=== PATIENT | female | born 1975 | race Caucasian/White ===

== ENCOUNTER 2018-10-07 16:50 | Emergency (ER) | payer SELFPAY ==
[~2018-10-07] VITALS: Ht 157.5 cm; Wt 74.8 kg
[2018-10-07 16:52] VITALS: BP 163/98
[2018-10-07] MEDS ORDERED: ONDANSETRON 4 MG ODT PO ONE (17:10)
--- NOTE | 2018-10-07 17:31 | NUR ---
BIB FRIEND W C/O WEAKNESS AFTER DRINKING A "DETOX" DRINK. PT REPORTS USING METHAMPHETAMINE SUNDAY, AND DRINKING THAT DRINK SO SHE WOULD BE ABLE TO DRUG TEST FOR WORK. NO FACIAL DROOP NOTED, EQUAL TOUCH UP PAINTER HAND. PT ANSWERING QUESTIONG APPROPRIATELY, SPEECH IS CLEAR AND APPROPRIATE. 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 DENIES ANY ALCOHOL OR OTHER DRUG USE.
[2018-10-07] MEDS ORDERED: LORazepam 1 MG TAB PO ONE (17:40)
[2018-10-07 18:31] VITALS: BP 146/90
--- NOTE | 2018-10-07 18:31 | NUR ---
Patient discharged with v/s stable. Written and verbal after care instructions given and explained. Patient alert, oriented and verbalized understanding of instructions. Ambulatory with steady gait. All questions addressed prior to discharge. ID band removed. Patient advised to follow up with PMD. Rx of ZOFRAN given. Patient educated on indication of medication including possible reaction and side effects. Opportunity to ask questions provided and answered. PT CALLING MOM FOR RIDE AND THEN GOING TO WAIT IN LOBBY FOR RIDE.
== END 2018-10-07 18:31 | disposition home or self-care (01) ==
LOC: MED 16:50
DX: K29.70 Gastritis, unspecified, without bleeding (principal)
CPT/HCPCS: 99283; Q0162

== ENCOUNTER 2021-03-30 08:38 | Emergency (ER) | payer SELFPAY ==
[~2021-03-30] VITALS: Ht 157.5 cm; Wt 86.2 kg
[2021-03-30 09:01] VITALS: BP 111/76
[2021-03-30] MEDS ORDERED: ACETAMINOPHEN 325 MG TAB PO ONE (09:20)
--- NOTE | 2021-03-30 09:35 | NUR ---
FLU AND NOVEL SWAB COLLECTED AND WALKED TO LAB.
--- NOTE | 2021-03-30 10:05 | NUR ---
46/F BIBA WITH C/O COUGH AND BODY ACHES X2 DAYS, REPORTS GOING [place] [facility] [place] BUT LEAVING BEFORE RECEIVING RESULTS. PATIENT ADMITS TO EXCESSIVELY DRINKING ALCOHOL LAST NIGHT AND TAKING ADVIL PM. DENIES SOB. REPORTS TAKING TYLENOL AT HOME.
--- NOTE | 2021-03-30 10:07 | NUR ---
SPOKE WITH PATIENTS MOM STATES SHE WILL COME PICK HER UP.
[2021-03-30 10:09] VITALS: BP 111/76
--- NOTE | 2021-03-30 10:10 | NUR ---
Patient discharged with v/s stable. Written and verbal after care instructions ABOUT COVID 19 given and explained. Patient verbalized understanding. Ambulatory with steady gait. All questions addressed prior to discharge. Advised to follow up with PMD.
== END 2021-03-30 10:10 | disposition home or self-care (01) ==
LOC: MED 08:38
DX: J02.9 Acute pharyngitis, unspecified (principal); R05.9 Cough, unspecified; Z20.822 Contact with and (suspected) exposure to COVID-19
CPT/HCPCS: 87804; 99283; U0003

== ENCOUNTER 2021-03-31 18:51 | Emergency (ER) | payer SELFPAY ==
[~2021-03-31] VITALS: Ht 162.6 cm; Wt 67.1 kg
[2021-03-31 19:11] VITALS: BP 148/78
--- NOTE | 2021-03-31 20:50 | NUR ---
LWBS by Dr. Leon.
== END 2021-03-31 20:50 | disposition left against medical advice (07) ==
LOC: MED 18:51
DX: Z53.21 Procedure and treatment not carried out due to patient leaving prior to being seen by health care provider (principal)

== ENCOUNTER 2022-10-18 21:52 | Emergency (ER) | payer SELFPAY ==
[~2022-10-18] VITALS: Ht 157.5 cm; Wt 86.2 kg
[2022-10-18 22:37] VITALS: BP 163/103; PULSE 92; RESP 16; TEMP 97.7; O2SAT 100
--- NOTE | 2022-10-18 22:43 | NUR ---
TO LOBBY FOLLOWING TRIAGE
--- NOTE | 2022-10-19 00:27 | NUR ---
pt. to chair b ambulatory
[2022-10-19] MEDS ORDERED: NAPR-54 PO (01:26)
[2022-10-19] MEDS ORDERED: DOXY-690 PO (01:26)
[2022-10-19 02:00] VITALS: BP 163/103; PULSE 92; RESP 16; TEMP 97.7; O2SAT 100
--- NOTE | 2022-10-19 02:01 | NUR ---
Pt seen and evaluated by ERMD.
--- NOTE | 2022-10-19 02:03 | NUR ---
Patient discharged with v/s stable. Written and verbal after care instructions given and explained. New rx vibramycin and naproxen. Patient verbalized understanding. Ambulatory with steady gait. All questions addressed prior to discharge. Advised to follow up with PMD.
== END 2022-10-19 02:00 | disposition home or self-care (01) ==
LOC: MED 21:52
DX: L02.416 Cutaneous abscess of left lower limb (principal); Z79.899 Other long term (current) drug therapy
CPT/HCPCS: 73562; 99283